=== PATIENT | male | born 1990 ===

== ENCOUNTER 2018-03-10 23:23 | Emergency (ER) | payer OTHER ==
[2018-03-10] MEDS ORDERED: SODIUM CHLORIDE 0.9% 1000ML 1,000 ML IV SCH (23:45)
[2018-03-11 00:11] LABS: BASOPHILS % (AUTO) 1 % (0-3); EOSINOPHILS % (AUTO) 1 % (0-9); HEMATOCRIT 47 % (39-53); HEMOGLOBIN 16.1 gm/dl (13.5-17.7); LYMPHOCYTES % (AUTO) 22.9 % (10-50); MEAN CORPUSCULAR HEMOGLOBIN 28.2 pg (27.0-32.0); MEAN CORPUSCULAR HGB CONC 34.6 gm/dl (32.0-36.0); MEAN CORPUSCULAR VOLUME 82 fL (80-100); MONOCYTES % (AUTO) 6.7 % (0-12)
[2018-03-11 00:34] LABS: ALBUMIN 3.8 gm/dl (3.4-5.0); BILIRUBIN,TOTAL 0.2 mg/dl (0.2-1.0); CALCIUM 8.4 mg/dl (8.5-10.1); CARBON DIOXIDE 26.2 mEq/L (21-32); CREATININE 0.97 mg/dl (0.80-1.30); MAGNESIUM 2.4 mg/dl (1.8-2.4); POTASSIUM 3.9 mMol/L (3.5-5.1); TOTAL PROTEIN 7.7 gm/dl (6.4-8.2)
[2018-03-11 00:35] LABS: ALCOHOL 0.374 gm/dl (0.000-0.08)
[2018-03-11 01:07] LABS: AMPHETAMINES NEGATIVE (NEGATIVE); BARBITUATES NEGATIVE (NEGATIVE); BENZODIAZEPINES NEGATIVE (NEGATIVE); CANNABINOL(THC) NEGATIVE (NEGATIVE); COCAINE(COC) NEGATIVE (NEGATIVE); METHADONE NEGATIVE (NEGATIVE); METHAMPHETAMINES NEGATIVE (NEGATIVE); OPIATES(OP13) NEGATIVE (NEGATIVE); OXYCODONE(OXY) NEGATIVE (NEGATIVE); PROPOXYPHENE(PPX) NEGATIVE (NEGATIVE); TRICYCLIC ANTIDEPRESSANTS NEGATIVE (NEGATIVE)
[2018-03-11 01:16] VITALS: O2SAT 94
[2018-03-11 01:40] VITALS: BP 118/71; PULSE 117; RESP 20; TEMP 98
== END 2018-03-11 01:43 ==
LOC: ED 23:23
DX: F10.129 Alcohol abuse with intoxication, unspecified (principal)
CPT/HCPCS: 36415; 80053; 80305; 80307; 83735; 85025; 96365; 99282

== ENCOUNTER 2018-06-29 23:56 | Emergency (ER) | payer OTHER ==
[2018-06-30 00:01] VITALS: RESP 18; TEMP 98.5
[2018-06-30] MEDS ORDERED: LORAZEPAM 2 MG/ML SOL IM ONE (00:07)
[2018-06-30] MEDS ORDERED: OLANZAPINE 2.5 MG TAB ONE (00:10)
[2018-06-30] MEDS ORDERED: LORAZEPAM 2 MG/ML SOL ONE (00:11)
[2018-06-30] MEDS ORDERED: OLANZAPINE 2.5 MG TAB PO SCH (00:15)
[2018-06-30] MEDS ORDERED: HALOPERIDOL LACTATE 5 MG/ML SOL ONE (00:30)
[2018-06-30] MEDS ORDERED: HALOPERIDOL LACTATE 5 MG/ML SOL IM ONE (00:33)
[2018-06-30 01:03] VITALS: BP 147/76; PULSE 78; O2SAT 99
== END 2018-06-30 01:00 | disposition home or self-care (01) ==
LOC: ED 23:56
DX: F15.10 Other stimulant abuse, uncomplicated (principal)
CPT/HCPCS: 96372; 99282; 99283; J1630; J2060; A9270-GY

== ENCOUNTER 2018-07-01 14:00 | Emergency (ER) | payer OTHER ==
[2018-07-01 14:22] LABS: BASOPHILS % (AUTO) 1 % (0-3); EOSINOPHILS % (AUTO) 2 % (0-9); HEMATOCRIT 49 % (39-53); HEMOGLOBIN 16.3 gm/dl (13.5-17.7); LYMPHOCYTES % (AUTO) 15.3 % (10-50); MEAN CORPUSCULAR HEMOGLOBIN 28.3 pg (27.0-32.0); MEAN CORPUSCULAR HGB CONC 33.5 gm/dl (32.0-36.0); MEAN CORPUSCULAR VOLUME 85 fL (80-100); MONOCYTES % (AUTO) 8.6 % (0-12); NEUTROPHILS % (AUTO) 73.2 % (37-80)
[2018-07-01] MEDS ORDERED: DIAZEPAM 5 MG TAB ONE (14:27)
[2018-07-01] MEDS ORDERED: DIAZEPAM 5 MG TAB PO ONE (14:35)
[2018-07-01 14:36] LABS: ALBUMIN 3.8 gm/dl (3.4-5.0); ALKALINE PHOSPHATASE 69 IU/L (46-116); ALT 179 IU/L (14-63); AST 64 IU/L (15-37); BILIRUBIN,TOTAL 0.4 mg/dl (0.2-1.0); BLOOD UREA NITROGEN 9 mg/dl (7-18); CALCIUM 8.2 mg/dl (8.5-10.1); CARBON DIOXIDE 23.9 mEq/L (21-32); CHLORIDE 101 mMol/L (98-107); CREATININE 1.12 mg/dl (0.80-1.30); GLUCOSE 111 mg/dl (74-106); POTASSIUM 3.9 mMol/L (3.5-5.1); SODIUM 137 mMol/L (136-145); TOTAL PROTEIN 7.7 gm/dl (6.4-8.2)
[2018-07-01 14:37] LABS: ALCOHOL < 0.003 gm/dl (0.000-0.08)
[2018-07-01] MEDS: SODIUM CHLORIDE 0.9% 1000ML 1,000 ML IV SCH ×2 (14:38→15:16)
[2018-07-01 14:51] VITALS: RESP 22
[2018-07-01 15:36] VITALS: TEMP 97.6
[2018-07-01 15:46] VITALS: BP 122/72; PULSE 97; O2SAT 98
[2018-07-01 15:52] LABS: AMPHETAMINES POSITIVE (NEGATIVE); BARBITUATES NEGATIVE (NEGATIVE); BENZODIAZEPINES NEGATIVE (NEGATIVE); CANNABINOL(THC) POSITIVE (NEGATIVE); COCAINE(COC) NEGATIVE (NEGATIVE); METHADONE NEGATIVE (NEGATIVE); METHAMPHETAMINES NEGATIVE (NEGATIVE); OPIATES(OPI) NEGATIVE (NEGATIVE); OXYCODONE(OXY) NEGATIVE (NEGATIVE); PROPOXYPHENE(PPX) NEGATIVE (NEGATIVE); TRICYCLIC ANTIDEPRESSANTS NEGATIVE (NEGATIVE)
[2018-07-01] MEDS ORDERED: CYCLOBENZAPRINE 10 MG TAB PO ONE (18:02)
[2018-07-01] MEDS ORDERED: CYCLOBENZAPRINE 10 MG TAB ONE (18:03)
== END 2018-07-01 18:05 | disposition home or self-care (01) ==
LOC: ED 14:00
DX: R25.2 Cramp and spasm (principal)
CPT/HCPCS: 36415; 80053; 80305; 80307; 85025; 96365; 96366; 99283; 99285; A9270-GY

== ENCOUNTER 2018-07-17 17:43 | Emergency (ER) | payer OTHER ==
[2018-07-17] MEDS ORDERED: HALOPERIDOL LACTATE 5 MG/ML SOL IM ONE (18:07)
[2018-07-17 18:15] LABS: BASOPHILS % (AUTO) 1 % (0-3); EOSINOPHILS % (AUTO) 2 % (0-9); HEMATOCRIT 54 % (39-53); HEMOGLOBIN 17.5 gm/dl (13.5-17.7); LYMPHOCYTES % (AUTO) 24.5 % (10-50); MEAN CORPUSCULAR HEMOGLOBIN 27.7 pg (27.0-32.0); MEAN CORPUSCULAR HGB CONC 32.6 gm/dl (32.0-36.0); MEAN CORPUSCULAR VOLUME 85 fL (80-100); MONOCYTES % (AUTO) 5.8 % (0-12); NEUTROPHILS % (AUTO) 67.2 % (37-80)
[2018-07-17] MEDS ORDERED: HALOPERIDOL LACTATE 5 MG/ML SOL ONE (18:16)
[2018-07-17] MEDS ORDERED: THIAMINE 100 MG/ML 100 MG/ML SOL ONE (18:27)
[2018-07-17] MEDS ORDERED: THIAMINE 100 MG/ML 100 MG/ML SOL IM ONE (18:27)
[2018-07-17 18:37] LABS: ALBUMIN 3.8 gm/dl (3.4-5.0); ALCOHOL 0.375 gm/dl (0.000-0.08); BILIRUBIN,TOTAL 0.3 mg/dl (0.2-1.0); CALCIUM 8.5 mg/dl (8.5-10.1); CARBON DIOXIDE 26.4 mEq/L (21-32); CREATININE 0.95 mg/dl (0.80-1.30)
[2018-07-17 18:56] VITALS: RESP 24; TEMP 97
[2018-07-17 19:10] LABS: AMPHETAMINES NEGATIVE (NEGATIVE); BARBITUATES NEGATIVE (NEGATIVE); BENZODIAZEPINES NEGATIVE (NEGATIVE); CANNABINOL(THC) NEGATIVE (NEGATIVE); COCAINE(COC) NEGATIVE (NEGATIVE); METHADONE NEGATIVE (NEGATIVE); METHAMPHETAMINES NEGATIVE (NEGATIVE); OPIATES(OPI) NEGATIVE (NEGATIVE); OXYCODONE(OXY) NEGATIVE (NEGATIVE); PROPOXYPHENE(PPX) NEGATIVE (NEGATIVE); TRICYCLIC ANTIDEPRESSANTS NEGATIVE (NEGATIVE)
[2018-07-17 19:23] VITALS: PULSE 93; O2SAT 93
[2018-07-17 19:50] VITALS: BP 130/86
== END 2018-07-17 20:30 | disposition other institution (70) ==
LOC: ED 17:43
DX: F10.10 Alcohol abuse, uncomplicated (principal); Y90.8 Blood alcohol level of 240 mg/100 ml or more
CPT/HCPCS: 36415; 80053; 80305; 80307; 85025; 96372; 99283; 99284; J1630; J3411

== ENCOUNTER 2018-07-28 17:24 | Emergency (ER) | payer OTHER ==
[2018-07-28] MEDS ORDERED: THIAMINE 100 MG/ML 100 MG/ML SOL IM ONE (17:54)
[2018-07-28] MEDS ORDERED: MAGNESIUM SULFATE 1 GM/2 ML SOL IV ONE (17:56)
[2018-07-28] MEDS ORDERED: FOLIC ACID 1 MG TAB PO ONE (17:56)
[2018-07-28] MEDS ORDERED: SODIUM CHLORIDE 0.9% IV ONE (18:00)
[2018-07-28] MEDS ORDERED: MAGNESIUM SULFATE IV ONE (18:00)
[2018-07-28] MEDS ORDERED: SODIUM CHLORIDE 0.9% 1000ML 1,000 ML IV SCH (18:00)
[2018-07-28] MEDS ORDERED: THIAMINE 100 MG/ML 100 MG/ML SOL ONE ×2 (18:04→20:05)
[2018-07-28] MEDS ORDERED: FOLIC ACID 1 MG TAB ONE ×2 (18:04→20:03)
[2018-07-28 18:14] LABS: BASOPHILS % (AUTO) 1 % (0-3); EOSINOPHILS % (AUTO) 2 % (0-9); HEMATOCRIT 53 % (39-53); HEMOGLOBIN 17.7 gm/dl (13.5-17.7); LYMPHOCYTES % (AUTO) 21.8 % (10-50); MEAN CORPUSCULAR HEMOGLOBIN 28.3 pg (27.0-32.0); MEAN CORPUSCULAR HGB CONC 33.6 gm/dl (32.0-36.0); MEAN CORPUSCULAR VOLUME 84 fL (80-100); MONOCYTES % (AUTO) 5.9 % (0-12); NEUTROPHILS % (AUTO) 70.1 % (37-80)
[2018-07-28] MEDS ORDERED: ONDANSETRON HCL 4 MG/2 ML SOL IV ONE (18:19)
[2018-07-28] MEDS ORDERED: ONDANSETRON HCL 4 MG/2 ML SOL ONE (18:19)
[2018-07-28 18:35] LABS: ALBUMIN 3.8 gm/dl (3.4-5.0); BILIRUBIN,DIRECT 0.1 mg/dl (0.0-0.2); BILIRUBIN,TOTAL 0.3 mg/dl (0.2-1.0); CALCIUM 7.6 mg/dl (8.5-10.1); CARBON DIOXIDE 25.2 mEq/L (21-32); CREATININE 0.98 mg/dl (0.80-1.30); MAGNESIUM 2.4 mg/dl (1.8-2.4); TOTAL PROTEIN 7.9 gm/dl (6.4-8.2)
[2018-07-28 18:38] LABS: ALCOHOL 0.375 gm/dl (0.000-0.08)
[2018-07-28 18:43] LABS: AMPHETAMINES NEGATIVE (NEGATIVE); BARBITUATES NEGATIVE (NEGATIVE); BENZODIAZEPINES NEGATIVE (NEGATIVE); CANNABINOL(THC) NEGATIVE (NEGATIVE); COCAINE(COC) NEGATIVE (NEGATIVE); METHADONE NEGATIVE (NEGATIVE); METHAMPHETAMINES NEGATIVE (NEGATIVE); OPIATES(OPI) NEGATIVE (NEGATIVE); OXYCODONE(OXY) NEGATIVE (NEGATIVE); PROPOXYPHENE(PPX) NEGATIVE (NEGATIVE); TRICYCLIC ANTIDEPRESSANTS NEGATIVE (NEGATIVE)
[2018-07-28 18:52] LABS: SALICYLATE < 2.8 mg/dl (2.8-30.0)
[2018-07-28 18:53] LABS: ACETAMINOPHEN < 2 ug/ml (10-30)
[2018-07-28] MEDS ORDERED: MAGNESIUM SULFATE 5 GM/10 ML SOL ONE (20:03)
[2018-07-28] MEDS ORDERED: SODIUM CHLORIDE 0.9% 1000ML 1,000 ML IV ONE (20:05)
[2018-07-28 22:35] VITALS: RESP 20
[2018-07-28 23:03] VITALS: TEMP 96.9
[2018-07-28 23:11] LABS: CALCIUM 7.1 mg/dl (8.5-10.1); CREATININE 0.84 mg/dl (0.80-1.30); POTASSIUM 4.1 mMol/L (3.5-5.1)
[2018-07-28 23:12] LABS: ALCOHOL 0.269 gm/dl (0.000-0.08)
[2018-07-29 00:33] LABS: ALBUMIN 3.6 gm/dl (3.4-5.0); BILIRUBIN,DIRECT 0.1 mg/dl (0.0-0.2); BILIRUBIN,TOTAL 0.3 mg/dl (0.2-1.0); TOTAL PROTEIN 7.5 gm/dl (6.4-8.2)
[2018-07-29 03:09] VITALS: BP 117/58; PULSE 102; O2SAT 95
== END 2018-07-29 02:02 | disposition other institution (70) ==
LOC: ED 17:24
DX: T48.1X2A Poisoning by skeletal muscle relaxants [neuromuscular blocking agents], intentional self-harm, initial encounter (principal); F10.129 Alcohol abuse with intoxication, unspecified
CPT/HCPCS: 36415; 80048; 80076; 80305; 80307; 83735; 85025; 93005; 96365; 96366; 96372; 96374; 99284; 99285; J2405; J3475; A9270-GY; J3411